=== PATIENT | female | born 1960 | race Caucasian/White ===

== ENCOUNTER 2017-03-12 19:54 | Emergency (ER) | payer BC, OTHER ==
[~2017-03-12] VITALS: Ht 172.7 cm; Wt 151.4 kg
[2017-03-12] MEDS ORDERED: MYRB25TA PO (20:25)
[2017-03-12] MEDS ORDERED: VITA100072 PO (20:25)
[2017-03-12] MEDS ORDERED: TYLETAB14 PO (20:25)
[2017-03-12] MEDS ORDERED: LEVO175T2 PO (20:25)
[2017-03-12] MEDS ORDERED: ZOLP5TAB PO (20:25)
[2017-03-12] MEDS ORDERED: OMEP20CA3 PO (20:25)
[2017-03-12] MEDS ORDERED: IBUP80TA PO (20:25)
[2017-03-12] MEDS ORDERED: TURM500C PO (20:25)
[2017-03-12] MEDS ORDERED: GABA-282 PO (20:25)
[2017-03-12] MEDS ORDERED: VITA-122 PO (20:25)
[2017-03-12] MEDS ORDERED: GLUCPOW24 PO (20:25)
[2017-03-12] MEDS ORDERED: NEUR100C PO (20:25)
[2017-03-12] MEDS ORDERED: EXCETAB80 PO (20:25)
[2017-03-12] MEDS ORDERED: BUPR300T34 PO (20:25)
[2017-03-12] MEDS ORDERED: ASPI81CH PO (20:25)
[2017-03-12] MEDS ORDERED: HAIR1TAB5 PO (20:25)
[2017-03-12] MEDS ORDERED: MORPHINE 10 MG/ML 1ML VIAL IM ONE (21:00)
--- NOTE | 2017-03-12 21:50 | REPUSA ---
CLINICAL HISTORY: Head trauma COMPARISON: No study for comparison is available at the time of interpretation. TECHNIQUE: Head CT without contrast. Total DLP 1575.5 mGy*cm Soft tissue: Mild right occipital soft tissue swelling. Brain: No intracranial hemorrhage or parenchymal edema. Calvarium: No depressed fractures. Sinuses (partially visualized): No hemorrhage fluid levels. IMPRESSION: No intracranial hemorrhage or fracture.
--- NOTE | 2017-03-12 21:50 | REPUSA ---
HISTORY: Trauma. COMPARISON: No relevant comparison is available at the time of interpretation. CT C-SPINE with reformations: Total DLP 1575.5 mGy*cm C1 through T1: Neural rings intact without fracture. Dens intact. Central canal: Patent without neural encroachment. Alignment (by reformations): No acute listhesis. IMPRESSION: Nontraumatic C-spine.
[2017-03-12] MEDS ORDERED: NORCO 5/325MG TABLET (BULK FOR ED) PO ONE (23:30)
[2017-03-12 23:31] VITALS: BP 152/74
== END 2017-03-12 23:33 | disposition home or self-care (01) ==
LOC: EDBD 19:54 → M ED 19:54
DX: S16.1XXA Strain of muscle, fascia and tendon at neck level, initial encounter (principal); W01.0XXA Fall on same level from slipping, tripping and stumbling without subsequent striking against object, initial encounter; Y92.091 Bathroom in other non-institutional residence as the place of occurrence of the external cause; Y93.9 Activity, unspecified; Y99.9 Unspecified external cause status; K21.9 Gastro-esophageal reflux disease without esophagitis; M51.9 Unspecified thoracic, thoracolumbar and lumbosacral intervertebral disc disorder; Z87.891 Personal history of nicotine dependence; E66.01 Morbid (severe) obesity due to excess calories; Z79.82 Long term (current) use of aspirin; Z79.899 Other long term (current) drug therapy

== ENCOUNTER → 2017-03-19 | Outpatient (CLI) | payer OTHER ==
[~2017-03-19] MED LIST: ASPI81CH PO; BUPR300T34 PO; EXCETAB80 PO; GABA-282 PO; GLUCPOW24 PO; HAIR1TAB5 PO; IBUP80TA PO; LEVO175T2 PO; MYRB25TA PO; NEUR100C PO; OMEP20CA3 PO; TURM500C PO; TYLETAB14 PO; VITA-122 PO; VITA100072 PO; ZOLP5TAB PO
[2017-03-19 14:08] LABS: MEAN CORPUSCULAR HEMOGLOBIN 26.3 pg (27.0-33.0); MEAN CORPUSCULAR HGB CONC 33.9 g/dl (32.0-36.5); MEAN CORPUSCULAR VOLUME 77.8 fl (80.0-96.0); RED CELL DISTRIBUTION WIDTH 14.8 % (11.5-14.5); WHITE BLOOD COUNT 6.2 K/mm3 (4.0-10.0)
[2017-03-19 14:30] LABS: ALBUMIN/GLOBULIN RATIO 1.03 (1.00-1.93); BILIRUBIN,TOTAL 0.3 MG/DL (0.2-1.0); CREATININE FOR GFR 1.05 MG/DL (0.55-1.02); GLOMERULAR FILTRATION RATE 57.9 (>51); POTASSIUM SERUM 4.8 MEQ/L (3.5-5.1); TOTAL PROTEIN 7.9 GM/DL (6.4-8.2)
== END ==
LOC: M SMT 10:40
PROVIDERS: ATTEND Internal Medicine
DX: E03.9 Hypothyroidism, unspecified (principal); G47.30 Sleep apnea, unspecified; E78.00 Pure hypercholesterolemia, unspecified; G62.9 Polyneuropathy, unspecified

== ENCOUNTER → 2017-09-28 | Outpatient (CLI) | payer OTHER ==
[~2017-09-28] MED LIST changes: -ASPI81CH PO; -BUPR300T34 PO; -EXCETAB80 PO; -GABA-282 PO; +GASTROGRAFIN SOLUTION 30ML (Q9963) As Ordered; -GLUCPOW24 PO; -HAIR1TAB5 PO; -IBUP80TA PO; +ISOVUE-370 76% 100ML VIAL (Q9967) As Ordered; -LEVO175T2 PO; -MYRB25TA PO; -NEUR100C PO; -OMEP20CA3 PO; -TURM500C PO; -TYLETAB14 PO; -VITA-122 PO; -VITA100072 PO; -ZOLP5TAB PO
== END ==
LOC: M RAD 15:36
DX: K57.30 Diverticulosis of large intestine without perforation or abscess without bleeding (principal); M25.552 Pain in left hip
CPT/HCPCS: Q9963

== ENCOUNTER → 2017-10-09 | Outpatient (REF) | payer OTHER ==
[2017-10-09 13:48] LABS: ALBUMIN 3.7 GM/DL (3.2-5.2); ALBUMIN/GLOBULIN RATIO 0.95 (1.00-1.93); ALKALINE PHOSPHATASE 76 U/L (45-117); ALT/SGPT 30 U/L (12-78); ANION GAP 8 MEQ/L (8-16); AST/SGOT 16 U/L (7-37); BILIRUBIN,TOTAL 0.3 MG/DL (0.2-1.0); BLOOD UREA NITROGEN 18 MG/DL (7-18); CALCIUM LEVEL 9.3 MG/DL (8.5-10.1); CARBON DIOXIDE LEVEL 27 MEQ/L (21-32); CHLORIDE LEVEL 106 MEQ/L (98-107); CHOLESTEROL LEVEL 195 MG/DL (<200); CHOLESTEROL RISK RATIO 4.148 (<5); CREATININE FOR GFR 0.85 MG/DL (0.55-1.30); GLOMERULAR FILTRATION RATE > 60.0 (>51); GLUCOSE, FASTING 96 MG/DL (70-100); HDL CHOLESTEROL 47 MG/DL (>40); LDL CHOLESTEROL 121.6 MG/DL (<100); NON-HDL-C 148 MG/DL; POTASSIUM SERUM 4.5 MEQ/L (3.5-5.1); SODIUM LEVEL 141 MEQ/L (136-145); THYROID STIMULATING HORMONE 0.213 uIU/ML (0.358-3.740); TOTAL PROTEIN 7.6 GM/DL (6.4-8.2); TRIGLYCERIDES LEVEL 132 MG/DL (<150)
== END ==
LOC: M LABDRWAD 12:30
DX: E78.00 Pure hypercholesterolemia, unspecified (principal); E03.9 Hypothyroidism, unspecified

== ENCOUNTER → 2018-03-09 | Outpatient (REF) | payer OTHER | LOC: M SFHCPLAZ 15:39 | DX: R19.7 Diarrhea, unspecified (principal) ==

== ENCOUNTER → 2018-04-14 | Outpatient (REF) | payer OTHER ==
[2018-04-14 12:22] LABS: HEMATOCRIT 42.3 % (36.0-47.0); HEMOGLOBIN 13.7 g/dl (12.0-15.5); MEAN CORPUSCULAR HEMOGLOBIN 26.3 pg (27.0-33.0); MEAN CORPUSCULAR HGB CONC 32.4 g/dl (32.0-36.5); MEAN CORPUSCULAR VOLUME 81.3 fl (80.0-96.0); PLATELET COUNT, AUTOMATED 300 10^3/uL (150-450); WHITE BLOOD COUNT 6.9 10^3/uL (4.0-10.0)
[2018-04-14 13:24] LABS: ALBUMIN 3.7 GM/DL (3.2-5.2); ALBUMIN/GLOBULIN RATIO 0.97 (1.00-1.93); ALKALINE PHOSPHATASE 77 U/L (45-117); ALT/SGPT 35 U/L (12-78); ANION GAP 7 MEQ/L (8-16); AST/SGOT 19 U/L (7-37); BILIRUBIN,TOTAL 0.2 MG/DL (0.2-1.0); BLOOD UREA NITROGEN 9 MG/DL (7-18); CALCIUM LEVEL 9.6 MG/DL (8.5-10.1); CARBON DIOXIDE LEVEL 23 MEQ/L (21-32); CHLORIDE LEVEL 109 MEQ/L (98-107); CREATININE FOR GFR 0.97 MG/DL (0.55-1.30); GLOMERULAR FILTRATION RATE > 60.0 (>51); GLUCOSE, FASTING 95 MG/DL (70-100); HEPATITIS C VIRUS ABY INDEX 0.1 INDEX (<0.8); POTASSIUM SERUM 4.4 MEQ/L (3.5-5.1); SODIUM LEVEL 139 MEQ/L (136-145); TOTAL 25(OH) VITAMIN D 40.4 NG/ML (30.0-100.0); TOTAL PROTEIN 7.5 GM/DL (6.4-8.2)
[2018-04-15 14:17] LABS: TISSUE TRANSGLUTAMINASE IgA <2 U/mL (0-3)
[2018-04-15 14:17] LABS: TISSUE TRANSGLUTAMINASE IgG <2 U/mL (0-5)
== END ==
LOC: M SFHCPLAZ 09:17
DX: R71.8 Other abnormality of red blood cells (principal); E03.9 Hypothyroidism, unspecified; E78.00 Pure hypercholesterolemia, unspecified; E55.9 Vitamin D deficiency, unspecified; Z11.59 Encounter for screening for other viral diseases; R19.7 Diarrhea, unspecified

== ENCOUNTER → 2018-05-31 | Outpatient (REF) | payer OTHER | LOC: M LAB REF 16:04 | DX: R19.7 Diarrhea, unspecified (principal) ==

== ENCOUNTER → 2018-06-07 | Outpatient (CLI) | payer OTHER | LOC: M ADAMS 16:03 | DX: E03.9 Hypothyroidism, unspecified (principal) ==

== ENCOUNTER → 2018-06-07 | Outpatient (REF) | payer OTHER | LOC: M SFHCPLAZ 16:09 | DX: E03.9 Hypothyroidism, unspecified (principal) ==

== ENCOUNTER → 2018-10-21 | Outpatient (REF) | payer OTHER ==
[~2018-10-21] MED LIST changes: +ASPI81CH PO; +BUPR300T34 PO; +EXCETAB80 PO; +GABA-843 PO; -GASTROGRAFIN SOLUTION 30ML (Q9963) As Ordered; +GLUCPOW24 PO; +HAIR1TAB5 PO; +IBUP80TA PO; -ISOVUE-370 76% 100ML VIAL (Q9967) As Ordered; +LEVO175T2 PO; +MYRB25TA PO; +NEUR100C PO; +OMEP20CA3 PO; +TURM500C PO; +TYLETAB14 PO; +VITA-122 PO; +VITA100072 PO; +ZOLP5TAB PO
[2018-10-21 20:42] LABS: ALBUMIN 3.6 GM/DL (3.2-5.2); ALT/SGPT 29 U/L (12-78); BILIRUBIN,TOTAL 0.4 MG/DL (0.2-1.0); BLOOD UREA NITROGEN 18 MG/DL (7-18); CARBON DIOXIDE LEVEL 28 MEQ/L (21-32); CHLORIDE LEVEL 107 MEQ/L (98-107); CHOLESTEROL LEVEL 224 MG/DL (<200); CHOLESTEROL RISK RATIO 3.246 (<5); GLOMERULAR FILTRATION RATE > 60.0 (>51); GLUCOSE, FASTING 81 MG/DL (70-100); HDL CHOLESTEROL 69 MG/DL (>40); LDL CHOLESTEROL 128 MG/DL (<100); MAGNESIUM LEVEL 2.3 MG/DL (1.8-2.4); NON-HDL-C 155 MG/DL; POTASSIUM SERUM 4.3 MEQ/L (3.5-5.1); SODIUM LEVEL 140 MEQ/L (136-145); TRIGLYCERIDES LEVEL 134 MG/DL (<150)
== END ==
LOC: M SFHCADAM 11:10
PROVIDERS: ATTEND Internal Medicine
DX: E03.9 Hypothyroidism, unspecified (principal); E78.00 Pure hypercholesterolemia, unspecified; R19.7 Diarrhea, unspecified

== ENCOUNTER → 2019-01-03 | Outpatient (REF) | payer OTHER ==
[~2019-01-03] MED LIST changes: -ASPI81CH PO; +ASPI81CH49 PO; +VITA100018 PO; -VITA100072 PO
== END ==
LOC: M SFHCADAM 15:39
PROVIDERS: ATTEND Internal Medicine
DX: E03.9 Hypothyroidism, unspecified (principal)

== ENCOUNTER → 2019-04-06 | Outpatient (REF) | payer OTHER ==
[~2019-04-06] MED LIST changes: -OMEP20CA3 PO; +OMEP20CA4 PO
[2019-04-06 13:51] LABS: HEMATOCRIT 40.4 % (36.0-47.0); HEMOGLOBIN 13.4 g/dl (12.0-15.5); MEAN CORPUSCULAR HEMOGLOBIN 27.1 pg (27.0-33.0); MEAN CORPUSCULAR HGB CONC 33.2 g/dl (32.0-36.5); MEAN CORPUSCULAR VOLUME 81.6 fl (80.0-96.0); PLATELET COUNT, AUTOMATED 259 10^3/uL (150-450); RED BLOOD COUNT 4.95 10^6/uL (4.00-5.40)
[2019-04-06 14:34] LABS: ALBUMIN 3.6 GM/DL (3.2-5.2); ALT/SGPT 29 U/L (12-78); BILIRUBIN,TOTAL 0.3 MG/DL (0.2-1.0); BLOOD UREA NITROGEN 22 MG/DL (7-18); CALCIUM LEVEL 9.7 MG/DL (8.5-10.1); CARBON DIOXIDE LEVEL 27 MEQ/L (21-32); CHLORIDE LEVEL 106 MEQ/L (98-107); CHOLESTEROL LEVEL 199 MG/DL (<200); CHOLESTEROL RISK RATIO 4.422 (<5); CREATININE FOR GFR 0.91 MG/DL (0.55-1.30); GLOMERULAR FILTRATION RATE > 60.0 (>51); GLUCOSE, FASTING 77 MG/DL (70-100); HDL CHOLESTEROL 45 MG/DL (>40); LDL CHOLESTEROL 100 MG/DL (<100); NON-HDL-C 154 MG/DL; POTASSIUM SERUM 4.3 MEQ/L (3.5-5.1); SODIUM LEVEL 140 MEQ/L (136-145); THYROID STIMULATING HORMONE 0.341 uIU/ML (0.358-3.740); TOTAL PROTEIN 7.3 GM/DL (6.4-8.2); TRIGLYCERIDES LEVEL 268 MG/DL (<150)
== END ==
LOC: M SFHCPLAZ 11:36
PROVIDERS: ATTEND Internal Medicine
DX: R71.8 Other abnormality of red blood cells (principal); E78.00 Pure hypercholesterolemia, unspecified; E03.9 Hypothyroidism, unspecified

== ENCOUNTER → 2019-10-28 | Outpatient (REF) | payer OTHER ==
[~2019-10-28] MED LIST changes: -BUPR300T34 PO; +BUPR300T92 PO; +OMEP1CAP73 PO; -OMEP20CA4 PO
== END ==
LOC: M SFHCPLAZ 13:51
PROVIDERS: ATTEND Internal Medicine
DX: B34.9 Viral infection, unspecified (principal)
CPT/HCPCS: 87502; U0002

== ENCOUNTER → 2019-11-07 | Outpatient (REF) | payer OTHER ==
[2019-11-07 14:09] LABS: HEMATOCRIT 42.3 % (36.0-47.0); HEMOGLOBIN 14.1 g/dl (12.0-15.5); MEAN CORPUSCULAR HEMOGLOBIN 26.3 pg (27.0-33.0); MEAN CORPUSCULAR HGB CONC 33.3 g/dl (32.0-36.5); MEAN CORPUSCULAR VOLUME 78.9 fl (80.0-96.0); PLATELET COUNT, AUTOMATED 256 10^3/uL (150-450); RED BLOOD COUNT 5.36 10^6/uL (4.00-5.40); WHITE BLOOD COUNT 6.5 10^3/uL (4.0-10.0)
[2019-11-07 14:47] LABS: ALBUMIN 3.4 GM/DL (3.2-5.2); ALT/SGPT 31 U/L (12-78); BILIRUBIN,TOTAL 0.3 MG/DL (0.2-1.0); BLOOD UREA NITROGEN 16 MG/DL (7-18); CALCIUM LEVEL 9.7 MG/DL (8.5-10.1); CARBON DIOXIDE LEVEL 24 MEQ/L (21-32); CHLORIDE LEVEL 109 MEQ/L (98-107); CHOLESTEROL LEVEL 173 MG/DL (<200); CHOLESTEROL RISK RATIO 6.407 (<5); CREATININE FOR GFR 0.95 MG/DL (0.55-1.30); GLOMERULAR FILTRATION RATE > 60.0 (>51); GLUCOSE, FASTING 96 MG/DL (70-100); HDL CHOLESTEROL 27 MG/DL (>40); LDL CHOLESTEROL 90 MG/DL (<100); MAGNESIUM LEVEL 1.9 MG/DL (1.8-2.4); NON-HDL-C 146 MG/DL; SODIUM LEVEL 138 MEQ/L (136-145); THYROID STIMULATING HORMONE 0.414 uIU/ML (0.358-3.740); TOTAL PROTEIN 7.2 GM/DL (6.4-8.2); TRIGLYCERIDES LEVEL 280 MG/DL (<150)
== END ==
LOC: M SFHCPLAZ 09:06
PROVIDERS: ATTEND Internal Medicine
DX: E78.00 Pure hypercholesterolemia, unspecified (principal); E03.9 Hypothyroidism, unspecified; B34.9 Viral infection, unspecified; R00.2 Palpitations

== ENCOUNTER → 2019-11-15 | Outpatient (CLI) | payer OTHER ==
--- NOTE | 2019-11-15 13:09 | REPPI ---
CHEST, TWO VIEWS: Two views of the chest are performed and compared to a prior study of 05/15/2010. There is mild bibasilar fibrotic change. No acute infiltrate is seen. Heart is normal in size. Mediastinal silhouette is unchanged. There are degenerative changes of the spine. IMPRESSION: Chronic changes without evidence of acute infiltrate. Electronically Signed by Richi Botello MD 11/15/2019 03:30 P
== END ==
LOC: M PLAIMG 11:47
PROVIDERS: ATTEND Family Medicine
DX: R06.00 Dyspnea, unspecified (principal)

== ENCOUNTER → 2019-11-16 | Outpatient (CLI) | payer OTHER ==
--- NOTE | 2019-11-16 08:13 | REP ---
Clinical: Abdominal distention. Evaluate for ascites. Technique: Real time reyes scale ultrasound using curved array transducer. Findings: Generalized survey ultrasound through the abdomen and pelvis demonstrates no ascites. Impression: No ascites. Electronically Signed by Carlos Thompson MD 11/16/2019 08:04 A
== END ==
LOC: M RAD 07:35
PROVIDERS: ATTEND Family Medicine
DX: R19.8 Other specified symptoms and signs involving the digestive system and abdomen (principal)

== ENCOUNTER → 2020-04-27 | Outpatient (CLI) | payer OTHER | LOC: M LABSMTC 11:25 | PROVIDERS: ATTEND Pediatrics | DX: Z20.828 Contact with and (suspected) exposure to other viral communicable diseases (principal) ==

== ENCOUNTER → 2020-05-08 | Outpatient (REF) | payer OTHER ==
[2020-05-08 17:55] LABS: ALBUMIN 3.5 GM/DL (3.2-5.2); ALT/SGPT 36 U/L (12-78); BILIRUBIN,TOTAL 0.2 MG/DL (0.2-1.0); BLOOD UREA NITROGEN 15 MG/DL (7-18); CALCIUM LEVEL 9.8 MG/DL (8.5-10.1); CARBON DIOXIDE LEVEL 26 MEQ/L (21-32); CHLORIDE LEVEL 106 MEQ/L (98-107); CHOLESTEROL LEVEL 204 MG/DL (<200); CREATININE FOR GFR 0.84 MG/DL (0.55-1.30); GLOMERULAR FILTRATION RATE > 60.0 (>51); GLUCOSE, FASTING 85 MG/DL (70-100); HDL CHOLESTEROL 40 MG/DL (>40); LDL CHOLESTEROL 114 MG/DL (<100); NON-HDL-C 164 MG/DL; SODIUM LEVEL 139 MEQ/L (136-145); THYROID STIMULATING HORMONE 0.111 uIU/ML (0.358-3.740); TOTAL PROTEIN 7.2 GM/DL (6.4-8.2); TRIGLYCERIDES LEVEL 251 MG/DL (<150)
== END ==
LOC: M SFHCPLAZ 15:53
PROVIDERS: ATTEND Internal Medicine
DX: E78.00 Pure hypercholesterolemia, unspecified (principal); R00.2 Palpitations; E03.9 Hypothyroidism, unspecified

== ENCOUNTER → 2020-06-10 | Outpatient (CLI) | payer OTHER | LOC: M LABSMTC 10:26 | PROVIDERS: ATTEND Pediatrics | DX: Z20.828 Contact with and (suspected) exposure to other viral communicable diseases (principal) | CPT/HCPCS: C9803; U0002 ==

== ENCOUNTER → 2020-06-12 | Outpatient (CLI) | payer OTHER | LOC: M LABSMTC 10:29 | PROVIDERS: ATTEND Pediatrics | DX: Z20.828 Contact with and (suspected) exposure to other viral communicable diseases (principal) ==

== ENCOUNTER → 2020-06-16 | Outpatient (CLI) | payer OTHER | LOC: M LABSMTC 10:35 | PROVIDERS: ATTEND Pediatrics | DX: Z20.828 Contact with and (suspected) exposure to other viral communicable diseases (principal) ==

== ENCOUNTER → 2020-06-20 | Outpatient (CLI) | payer OTHER | LOC: M LABSMTC 10:33 | PROVIDERS: ATTEND Pediatrics | DX: Z20.828 Contact with and (suspected) exposure to other viral communicable diseases (principal) ==

== ENCOUNTER → 2020-06-22 | Outpatient (CLI) | payer OTHER | LOC: M LABSMTC 10:35 | PROVIDERS: ATTEND Pediatrics | DX: Z20.828 Contact with and (suspected) exposure to other viral communicable diseases (principal) ==

== ENCOUNTER → 2020-09-20 | Outpatient (REF) ==
[~2020-09-20] MED LIST changes: +GABA-282 PO; -GABA-843 PO
== END ==
LOC: M LABSMTC 10:51
PROVIDERS: ATTEND Pediatrics
DX: Z20.822 Contact with and (suspected) exposure to COVID-19 (principal)

== ENCOUNTER → 2020-09-23 | Outpatient (REF) | LOC: M LABSMTC 11:49 | PROVIDERS: ATTEND Pediatrics | DX: Z11.52 Encounter for screening for COVID-19 (principal) ==

== ENCOUNTER → 2020-11-26 | Outpatient (REF) | payer OTHER ==
[2020-11-26 17:33] LABS: BASO # 0.1 10^3/uL (0.0-0.2); BASO % 0.8 % (0.0-1.0); EOS # 0.2 10^3/uL (0.0-0.5); EOS % 2.8 % (0.0-3.0); HEMOGLOBIN 13.6 g/dl (12.0-15.5); LYMPH # 1.6 10^3/uL (1.5-5.0); LYMPH % 24.9 % (24.0-44.0); MEAN CORPUSCULAR HEMOGLOBIN 26.8 pg (27.0-33.0); MEAN CORPUSCULAR HGB CONC 33.2 g/dl (32.0-36.5); MEAN CORPUSCULAR VOLUME 80.7 fl (80.0-96.0); MONO # 0.6 10^3/uL (0.0-0.8); MONO % 8.9 % (2.0-8.0); NEUTROPHILS % 61.5 % (36.0-66.0); PLATELET COUNT, AUTOMATED 280 10^3/uL (150-450); RED BLOOD COUNT 5.08 10^6/uL (4.00-5.40); WHITE BLOOD COUNT 6.5 10^3/uL (4.0-10.0)
[2020-11-26 18:03] LABS: ALBUMIN 3.6 GM/DL (3.2-5.2); ALT/SGPT 30 U/L (12-78); BILIRUBIN,TOTAL 0.3 MG/DL (0.2-1.0); BLOOD UREA NITROGEN 14 MG/DL (7-18); CALCIUM LEVEL 9.5 MG/DL (8.5-10.1); CARBON DIOXIDE LEVEL 27 MEQ/L (21-32); CHLORIDE LEVEL 105 MEQ/L (98-107); CHOLESTEROL LEVEL 227 MG/DL (<200); CHOLESTEROL RISK RATIO 4.365 (<5); CREATININE FOR GFR 0.88 MG/DL (0.55-1.30); GLOMERULAR FILTRATION RATE > 60.0 (>51); GLUCOSE, FASTING 95 MG/DL (70-100); HDL CHOLESTEROL 52 MG/DL (>40); LDL CHOLESTEROL 142 MG/DL (<100); NON-HDL-C 175 MG/DL; POTASSIUM SERUM 4.3 MEQ/L (3.5-5.1); SODIUM LEVEL 140 MEQ/L (136-145); THYROID STIMULATING HORMONE 0.497 uIU/ML (0.358-3.740); TOTAL PROTEIN 7.2 GM/DL (6.4-8.2); TRIGLYCERIDES LEVEL 163 MG/DL (<150)
== END ==
LOC: M SFHCADAM 12:03
PROVIDERS: ATTEND Internal Medicine
DX: R71.8 Other abnormality of red blood cells (principal); E78.00 Pure hypercholesterolemia, unspecified; E03.9 Hypothyroidism, unspecified

== ENCOUNTER → 2021-04-12 | Outpatient (REF) | payer OTHER | LOC: M LAB REF 14:23 | PROVIDERS: ATTEND Nurse Practitioner Family | DX: R19.7 Diarrhea, unspecified (principal); K57.30 Diverticulosis of large intestine without perforation or abscess without bleeding; K21.9 Gastro-esophageal reflux disease without esophagitis; K52.89 Other specified noninfective gastroenteritis and colitis; K64.4 Residual hemorrhoidal skin tags ==

== ENCOUNTER → 2021-05-24 | Outpatient (REF) | payer BC ==
[2021-05-24 12:59] LABS: BASO # 0.1 10^3/uL (0.0-0.2); BASO % 1.1 % (0.0-1.0); EOS # 0.2 10^3/uL (0.0-0.5); EOS % 4.1 % (0.0-3.0); HEMATOCRIT 40.3 % (36.0-47.0); LYMPH # 1.2 10^3/uL (1.5-5.0); LYMPH % 22.4 % (24.0-44.0); MEAN CORPUSCULAR HEMOGLOBIN 26.4 pg (27.0-33.0); MEAN CORPUSCULAR HGB CONC 32.3 g/dl (32.0-36.5); MEAN CORPUSCULAR VOLUME 81.7 fl (80.0-96.0); MONO # 0.8 10^3/uL (0.0-0.8); NEUTROPHILS # 3.1 10^3/uL (1.5-8.5); NEUTROPHILS % 56.7 % (36.0-66.0); PLATELET COUNT, AUTOMATED 237 10^3/uL (150-450); RED BLOOD COUNT 4.93 10^6/uL (4.00-5.40); WHITE BLOOD COUNT 5.4 10^3/uL (4.0-10.0)
[2021-05-24 13:38] LABS: ALBUMIN 3.3 GM/DL (3.2-5.2); ALT/SGPT 43 U/L (12-78); BILIRUBIN,TOTAL 0.3 MG/DL (0.2-1.0); BLOOD UREA NITROGEN 13 MG/DL (7-18); CALCIUM LEVEL 9.4 MG/DL (8.5-10.1); CARBON DIOXIDE LEVEL 25 MEQ/L (21-32); CHLORIDE LEVEL 109 MEQ/L (98-107); CHOLESTEROL LEVEL 180 MG/DL (<200); CHOLESTEROL RISK RATIO 3.829 (<5); CREATININE FOR GFR 0.96 MG/DL (0.55-1.30); GLOMERULAR FILTRATION RATE > 60.0 (>51); GLUCOSE, FASTING 95 MG/DL (70-100); HDL CHOLESTEROL 47 MG/DL (>40); LDL CHOLESTEROL 113 MG/DL (<100); NON-HDL-C 133 MG/DL; POTASSIUM SERUM 4.4 MEQ/L (3.5-5.1); SODIUM LEVEL 140 MEQ/L (136-145); TOTAL PROTEIN 6.7 GM/DL (6.4-8.2); TRIGLYCERIDES LEVEL 98 MG/DL (<150)
== END ==
LOC: M SFHCADAM 08:22
PROVIDERS: ATTEND Internal Medicine
DX: R71.8 Other abnormality of red blood cells (principal); E78.00 Pure hypercholesterolemia, unspecified; E03.9 Hypothyroidism, unspecified

== ENCOUNTER → 2021-12-05 | Outpatient (CLI) | payer BC | LOC: M WHC 07:34 | PROVIDERS: ATTEND Obstetrics & Gynecology | DX: R10.31 Right lower quadrant pain (principal) ==

== ENCOUNTER → 2021-12-24 | Outpatient (CLI) | payer BC ==
[2021-12-24 12:47] LABS: BASO % 0.6 % (0.0-1.0); EOS # 0.3 10^3/uL (0.0-0.5); HEMATOCRIT 41.7 % (36.0-47.0); HEMOGLOBIN 13.8 g/dl (12.0-15.5); LYMPH # 1.4 10^3/uL (1.5-5.0); LYMPH % 22.8 % (24.0-44.0); MEAN CORPUSCULAR HEMOGLOBIN 26.8 pg (27.0-33.0); MEAN CORPUSCULAR HGB CONC 33.1 g/dl (32.0-36.5); MEAN CORPUSCULAR VOLUME 81.1 fl (80.0-96.0); MONO # 0.5 10^3/uL (0.0-0.8); MONO % 8.3 % (2.0-8.0); NEUTROPHILS % 63.8 % (36.0-66.0); PLATELET COUNT, AUTOMATED 276 10^3/uL (150-450); RED BLOOD COUNT 5.14 10^6/uL (4.00-5.40); WHITE BLOOD COUNT 6.3 10^3/uL (4.0-10.0)
[2021-12-24 13:48] LABS: ALBUMIN 3.5 GM/DL (3.2-5.2); BILIRUBIN,TOTAL 0.3 MG/DL (0.2-1.0); CALCIUM LEVEL 9.4 MG/DL (8.5-10.1); CHOLESTEROL RISK RATIO 4.275 (<5); CREATININE FOR GFR 1.09 MG/DL (0.55-1.30); GLOMERULAR FILTRATION RATE 54.7 (>51); POTASSIUM SERUM 4.4 MEQ/L (3.5-5.1); THYROID STIMULATING HORMONE 0.909 uIU/ML (0.358-3.740); TOTAL PROTEIN 7.1 GM/DL (6.4-8.2)
== END ==
LOC: M ADAMS 09:47
PROVIDERS: ATTEND Internal Medicine
DX: E78.00 Pure hypercholesterolemia, unspecified (principal); G47.30 Sleep apnea, unspecified; E03.9 Hypothyroidism, unspecified

== ENCOUNTER → 2022-07-21 | Outpatient (CLI) | payer BC ==
[~2022-07-21] MED LIST changes: +GASTROGRAFIN SOLUTION 30ML As Ordered ONE; +ISOVUE-370 76% 100ML VIAL As Ordered ONE
== END ==
LOC: M RAD 12:57
PROVIDERS: ATTEND Physician Assistant
DX: R10.84 Generalized abdominal pain (principal); R10.2 Pelvic and perineal pain

== ENCOUNTER → 2022-10-24 | Outpatient (REF) | payer BC ==
[~2022-10-24] MED LIST changes: -GASTROGRAFIN SOLUTION 30ML As Ordered ONE; -ISOVUE-370 76% 100ML VIAL As Ordered ONE
[2022-10-24 14:01] LABS: THYROID STIMULATING HORMONE 1.964 uIU/ML (0.55-4.78); TOTAL 25(OH) VITAMIN D 70.6 NG/ML (20.0-100.0)
[2022-10-24 14:13] LABS: ALBUMIN 3.7 G/DL (3.2-5.2); ALKALINE PHOSPHATASE 78 U/L (46-116); ALT/SGPT 27 U/L (7.0-40); AST/SGOT 27 U/L (<34); BILIRUBIN,TOTAL 0.4 MG/DL (0.3-1.2); BLOOD UREA NITROGEN 15 MG/DL (9-23); CALCIUM LEVEL 9.5 MG/DL (8.3-10.6); CARBON DIOXIDE LEVEL 24 MMOL/L (20-31); CHLORIDE LEVEL 107 MMOL/L (98-107); CHOLESTEROL LEVEL 199 MG/DL (<200); CHOLESTEROL RISK RATIO 4.42 (<5); GLOMERULAR FILTRATION RATE > 60.0 (>45); GLUCOSE, FASTING 94 MG/DL (74-106); LDL CHOLESTEROL 127.4 MG/DL (<100); MAGNESIUM LEVEL 1.9 MG/DL (1.8-2.4); POTASSIUM SERUM 4.3 MMOL/L (3.5-5.1); SODIUM LEVEL 138 MMOL/L (136-145); TOTAL PROTEIN 6.9 G/DL (5.7-8.2); TRIGLYCERIDES LEVEL 133 MG/DL (<150)
[2022-10-24 14:14] LABS: HEMOGLOBIN A1c 5.6 % (4.0-6.0)
== END ==
LOC: M SFHCADAM 09:42
PROVIDERS: ATTEND Nurse Practitioner Adult Health
DX: E78.00 Pure hypercholesterolemia, unspecified (principal); G62.9 Polyneuropathy, unspecified; R00.2 Palpitations; E03.9 Hypothyroidism, unspecified; E55.9 Vitamin D deficiency, unspecified

== ENCOUNTER → 2023-06-17 | Outpatient (REF) | payer BC ==
[2023-06-17 15:06] LABS: HEMATOCRIT 41.8 % (36.0-47.0); HEMOGLOBIN 13.5 g/dl (12.0-15.5); MEAN CORPUSCULAR HEMOGLOBIN 27.5 pg (27.0-33.0); MEAN CORPUSCULAR HGB CONC 32.3 g/dl (32.0-36.5); MEAN CORPUSCULAR VOLUME 85.1 fl (80.0-96.0); PLATELET COUNT, AUTOMATED 265 10^3/uL (150-450); RED BLOOD COUNT 4.91 10^6/uL (4.00-5.40); WHITE BLOOD COUNT 5.1 10^3/uL (4.0-10.0)
[2023-06-17 15:11] LABS: ALBUMIN 3.4 G/DL (3.2-5.2); ALKALINE PHOSPHATASE 67 U/L (46-116); ALT/SGPT 16 U/L (7.0-40); AST/SGOT 14 U/L (<34); BILIRUBIN,TOTAL 0.3 MG/DL (0.3-1.2); BLOOD UREA NITROGEN 11 MG/DL (9-23); CALCIUM LEVEL 9.7 MG/DL (8.3-10.6); CARBON DIOXIDE LEVEL 27 MMOL/L (20-31); CHLORIDE LEVEL 106 MMOL/L (98-107); CREATININE FOR GFR 0.89 MG/DL (0.55-1.30); GLOMERULAR FILTRATION RATE > 60.0 (>45); GLUCOSE, FASTING 94 MG/DL (74-106); POTASSIUM SERUM 4.5 MMOL/L (3.5-5.1); SODIUM LEVEL 139 MMOL/L (136-145); TOTAL PROTEIN 6.5 G/DL (5.7-8.2)
[2023-06-17 15:12] LABS: THYROID STIMULATING HORMONE 0.278 uIU/ML (0.55-4.78)
== END ==
LOC: M SFHCPLAZ 10:10
PROVIDERS: ATTEND Nurse Practitioner Adult Health
DX: E78.00 Pure hypercholesterolemia, unspecified (principal); E03.9 Hypothyroidism, unspecified; R71.8 Other abnormality of red blood cells

== ENCOUNTER → 2023-09-18 | Outpatient (REF) | payer BC | LOC: M SFHCWAGY 10:34 | PROVIDERS: ATTEND Advanced Practice Midwife | DX: Z12.4 Encounter for screening for malignant neoplasm of cervix (principal) ==

== ENCOUNTER → 2024-01-14 | Outpatient (REF) | payer BC ==
[~2024-01-14] MED LIST changes: +BUPR-597 PO; -BUPR300T92 PO
[2024-01-14 13:58] LABS: HEMATOCRIT 39.9 % (36.0-47.0); MEAN CORPUSCULAR HEMOGLOBIN 27.5 pg (27.0-33.0); MEAN CORPUSCULAR HGB CONC 32.6 g/dl (32.0-36.5); MEAN CORPUSCULAR VOLUME 84.4 fl (80.0-96.0); PLATELET COUNT, AUTOMATED 230 10^3/uL (150-450); RED BLOOD COUNT 4.73 10^6/uL (4.00-5.40); WHITE BLOOD COUNT 7.6 10^3/uL (4.0-10.0)
[2024-01-14 14:14] LABS: HEMOGLOBIN A1c 5.3 % (4.0-6.0)
[2024-01-14 14:22] LABS: THYROID STIMULATING HORMONE 0.829 uIU/ML (0.55-4.78); TOTAL 25(OH) VITAMIN D 71.6 NG/ML (20.0-100.0)
[2024-01-14 14:25] LABS: ALBUMIN 3.4 G/DL (3.2-5.2); ALKALINE PHOSPHATASE 68 U/L (46-116); ALT/SGPT 23 U/L (7.0-40); AST/SGOT 13 U/L (<34); BILIRUBIN,TOTAL 0.5 MG/DL (0.3-1.2); BLOOD UREA NITROGEN 18 MG/DL (9-23); CALCIUM LEVEL 9.8 MG/DL (8.3-10.6); CARBON DIOXIDE LEVEL 28 MMOL/L (20-31); CHLORIDE LEVEL 105 MMOL/L (98-107); CHOLESTEROL LEVEL 162 MG/DL (<200); CHOLESTEROL RISK RATIO 3.23 (<5); CREATININE FOR GFR 1.01 MG/DL (0.55-1.30); GLOMERULAR FILTRATION RATE > 60.0 (>45); GLUCOSE, FASTING 85 MG/DL (74-106); HDL CHOLESTEROL 50.1 MG/DL (>40); LDL CHOLESTEROL 96.9 MG/DL (<100); NON-HDL-C 111.9 MG/DL; POTASSIUM SERUM 4.4 MMOL/L (3.5-5.1); SODIUM LEVEL 138 MMOL/L (136-145); TOTAL PROTEIN 6.5 G/DL (5.7-8.2); TRIGLYCERIDES LEVEL 75 MG/DL (<150)
== END ==
LOC: M SFHCPLAZ 08:04
PROVIDERS: ATTEND Nurse Practitioner Adult Health
DX: R71.8 Other abnormality of red blood cells (principal); E78.00 Pure hypercholesterolemia, unspecified; G62.9 Polyneuropathy, unspecified; E55.9 Vitamin D deficiency, unspecified; E03.9 Hypothyroidism, unspecified

== ENCOUNTER → 2024-04-20 | Outpatient (CLI) | payer BC ==
[2024-04-20 12:47] LABS: HEMOGLOBIN 13.3 g/dl (12.0-15.5); MEAN CORPUSCULAR HEMOGLOBIN 27.9 pg (27.0-33.0); MEAN CORPUSCULAR HGB CONC 33.3 g/dl (32.0-36.5); MEAN CORPUSCULAR VOLUME 83.9 fl (80.0-96.0); PLATELET COUNT, AUTOMATED 257 10^3/uL (150-450); RED BLOOD COUNT 4.77 10^6/uL (4.00-5.40); WHITE BLOOD COUNT 8.4 10^3/uL (4.0-10.0)
[2024-04-20 13:11] LABS: LIPASE 32 U/L (12-53)
[2024-04-20 13:13] LABS: ALBUMIN 3.6 G/DL (3.2-5.2); ALKALINE PHOSPHATASE 74 U/L (46-116); ALT/SGPT 18 U/L (7.0-40); AST/SGOT 15 U/L (<34); BILIRUBIN,TOTAL 0.3 MG/DL (0.3-1.2); BLOOD UREA NITROGEN 17 MG/DL (9-23); CALCIUM LEVEL 9.7 MG/DL (8.3-10.6); CARBON DIOXIDE LEVEL 28 MMOL/L (20-31); CHLORIDE LEVEL 106 MMOL/L (98-107); CREATININE FOR GFR 0.91 MG/DL (0.55-1.30); GLOMERULAR FILTRATION RATE > 60.0 (>45); GLUCOSE, FASTING 84 MG/DL (74-106); MAGNESIUM LEVEL 1.9 MG/DL (1.8-2.4); POTASSIUM SERUM 4.3 MMOL/L (3.5-5.1); SODIUM LEVEL 137 MMOL/L (136-145)
== END ==
LOC: M PLALAB 11:16
PROVIDERS: ATTEND Physician Assistant Medical
DX: R10.31 Right lower quadrant pain (principal)

== ENCOUNTER → 2024-04-29 | Outpatient (CLI) | payer BC ==
[~2024-04-29] MED LIST changes: +ISOVUE-370 76% 100ML VIAL ONE
== END ==
LOC: M PLAIMG 12:26
PROVIDERS: ATTEND Physician Assistant Medical
DX: R10.31 Right lower quadrant pain (principal)
CPT/HCPCS: 74177; Q9967

== ENCOUNTER → 2024-05-24 | Outpatient (REF) | payer BC ==
[~2024-05-24] MED LIST changes: +GABA-1172 PO; -GABA-282 PO; -ISOVUE-370 76% 100ML VIAL ONE
[2024-05-24 20:10] LABS: FREE T4 1.66 NG/DL (0.89-1.76)
[2024-05-24 20:15] LABS: ALBUMIN 3.8 G/DL (3.2-5.2); ALKALINE PHOSPHATASE 77 U/L (46-116); ALT/SGPT 23 U/L (7.0-40); AMYLASE 51 U/L (30-118); AST/SGOT 17 U/L (<34); BILIRUBIN,TOTAL 0.4 MG/DL (0.3-1.2); BLOOD UREA NITROGEN 15 MG/DL (9-23); CALCIUM LEVEL 10.5 MG/DL (8.3-10.6); CARBON DIOXIDE LEVEL 26 MMOL/L (20-31); CHLORIDE LEVEL 106 MMOL/L (98-107); CREATININE FOR GFR 0.99 MG/DL (0.55-1.30); GLOMERULAR FILTRATION RATE > 60.0 (>45); GLUCOSE, FASTING 77 MG/DL (74-106); LIPASE 34 U/L (12-53); POTASSIUM SERUM 4.8 MMOL/L (3.5-5.1); SODIUM LEVEL 138 MMOL/L (136-145); TOTAL PROTEIN 7.5 G/DL (5.7-8.2)
== END ==
LOC: M LABDRWAD 17:24
PROVIDERS: ATTEND Nurse Practitioner Adult Health
DX: E78.00 Pure hypercholesterolemia, unspecified (principal); Z68.35 Body mass index [BMI] 35.0-35.9, adult; E03.9 Hypothyroidism, unspecified

== ENCOUNTER → 2024-05-30 | Outpatient (REF) | LOC: M EMP 10:34 | PROVIDERS: ATTEND Family Medicine | DX: Z11.52 Encounter for screening for COVID-19 (principal) ==

== ENCOUNTER → 2024-05-31 | Outpatient (REF) | LOC: M EMP 09:02 | PROVIDERS: ATTEND Family Medicine | DX: Z11.52 Encounter for screening for COVID-19 (principal) ==

== ENCOUNTER → 2024-05-31 | Outpatient (REF) | payer BC | LOC: M LAB REF 12:36 | PROVIDERS: ATTEND Physician Assistant Medical | DX: J02.9 Acute pharyngitis, unspecified (principal) ==

== ENCOUNTER → 2024-12-01 | Outpatient (CLI) | payer BC ==
[~2024-12-01] MED LIST changes: -BUPR-597 PO; +BUPR-766 PO
[2024-12-01 10:44] LABS: ALBUMIN 3.6 G/DL (3.2-5.2); BILIRUBIN,TOTAL 0.4 MG/DL (0.3-1.2); CALCIUM LEVEL 9.6 MG/DL (8.3-10.6); CREATININE FOR GFR 0.89 MG/DL (0.55-1.30); GLOMERULAR FILTRATION RATE 73.3 (>45); POTASSIUM SERUM 4.4 MMOL/L (3.5-5.1); TOTAL PROTEIN 6.8 G/DL (5.7-8.2)
[2024-12-01 10:45] LABS: FREE T4 1.43 NG/DL (0.89-1.76); THYROID STIMULATING HORMONE 0.378 uIU/ML (0.55-4.78)
== END ==
LOC: M PLALAB 09:18
PROVIDERS: ATTEND Nurse Practitioner Adult Health
DX: E03.9 Hypothyroidism, unspecified (principal); Z68.36 Body mass index [BMI] 36.0-36.9, adult

== ENCOUNTER → 2025-02-14 | Outpatient (REF) | payer BC ==
[2025-02-14 15:19] LABS: FREE T4 1.37 NG/DL (0.89-1.76)
== END ==
LOC: M LABDRWAD 13:18
PROVIDERS: ATTEND Nurse Practitioner Adult Health
DX: E03.9 Hypothyroidism, unspecified (principal)

== ENCOUNTER → 2025-04-07 | Outpatient (REF) | payer BC ==
[2025-04-11 14:38] LABS: HPV APTIMA Not Detected (Not Detected)
== END ==
LOC: M SFHCWAGY 13:13
PROVIDERS: ATTEND Advanced Practice Midwife
DX: Z12.4 Encounter for screening for malignant neoplasm of cervix (principal); Z77.9 Other contact with and (suspected) exposures hazardous to health
CPT/HCPCS: 87624; G0123

== ENCOUNTER → 2025-04-07 | Outpatient (CLI) | payer BC | LOC: M WHC 08:33 | PROVIDERS: ATTEND Nurse Practitioner Family | DX: Z53.9 Procedure and treatment not carried out, unspecified reason (principal) ==